=== PATIENT | female | born 2000 | race Caucasian/White ===

== ENCOUNTER 2022-08-17 21:06 | Emergency (ER) | payer OTHER ==
--- OUTSIDE RECORDS SUMMARY | 2022-08-17 21:09 | XMS REPORT | Continuity of Care Document ---
:2000 Author Organization [facility] t Address [address] [place] [address]. 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 [id number] 2021 NON-CONTRACT 00:00:00 [employer] [id number] 2019 00:00:00 Problems Condition Condition Condition Status Onset Resolution Last Treating Co mments Source Name Details Category Date Date Treatment Clinician Date Generalize Generalize Disease Active U nivers d anxiety d anxiety 3-17 ity of disorder disorder 00:00: [address] Allergies, Adverse Reactions, Alerts Allergy Allergy Status Severity Reaction(s) Onset Inactive Treating Comm ents Source Name Type Date Date Clinician NO KNOWN Drug Active Univers ALLERGIE Class ity of S [facility] Social History Social Habit Start Date Stop Date Quantity Comments Source History [facility] University o f Alcohol Frequency [facility] edical Branch History [facility] University o f Alcohol Std Drinks [facility] History [facility] University o f Alcohol Binge [facility] al Branch History of tobacco Cigarette Smoker University of use [facility] Exposure to Not sure University of SARS-CoV-2 (event) [facility] Alcohol intake 2021-01-24 2021-01-24 0 /d University of 00:00:00 00:00:00 [facility] Cigarettes smoked 2020-02-02 2020-02-02 Univers ity of current (pack per 00:00:00 00:00:00 [facility] ) - Reported Branch Cigarette 2020-02-02 2020-02-02 University of pack-years 00:00:00 00:00:00 [facility] Tobacco use and 2020-02-02 2020-02-02 Never used Universit y of exposure 00:00:00 00:00:00 [facility] Alcohol Comment 2020-02-02 2020-02-02 socially Universit y of 00:00:00 00:00:00 [facility] Sex Assigned At [birth year] Universit y of 00:00:00 00:00:00 [facility] Smoking Status Start Date Stop Date Source Current every day smoker 2020-02-02 00:00:00 Uni versity of [facility] Medications Ordered Filled Start Stop Current Ordering Indication Dosage Frequency Signature Comments Components Source Medication Medication Date Date Medication? Clinician (SIG) Name Name medroxyPROG 2020-06- No [id number] 150mg Univers ESTERone -12 11-12 ity of (DEPO-PROVE 17:15: 16:18 [facility]) syringe 00 :00 Medical 150 mg [place] medroxyPROG 2020-06- No [id number] 150mg 150 mg, Univers ESTERone -12 11-12 Intramuscu ity of (DEPO-PROVE 17:15: 16:18 lar, ONCE, [facility]) syringe 00 :00 1 dose, On Me dical 150 mg Fri [place] 04/26/21 at 1115, Routine ciprofloxac 2020-06 Yes [id number] 250mg Take 1 Univers in HCl 1-12 tablet by ity of (CIPRO) 250 00:00: mouth [place] mg tablet 00 every 12 Medica l (twelve) Branch hours. escitalopra Yes [id number] 15mg Take 1.5 Univers m oxalate 8-12 tablets by ity of 10 mg 00:00: mouth [place] tablet 00 daily. [facility] hydrOXYzine Yes [id number] 25mg Take 1 Univers 25 mg 8-12 tablet by ity of tablet 00:00: mouth [place] 00 every 6 Medical (six) Branch hours as needed for Anxiety. Vital Signs Vital Name Observation Time Observation Value Comments Source Systolic blood 2021-04-26 16:01:00 119 mm[Hg] Univer sity of pressure [facility] Diastolic blood 2021-04-26 16:01:00 86 mm[Hg] Unive rsity of pressure [facility] Heart rate 2021-04-26 16:01:00 82 /min [facility] Body temperature 2021-04-26 16:01:00 36.83 [facility] [facility] height 2021-04-26 16:01:00 175.3 cm [facility] Body weight 2021-04-26 16:01:00 103.874 kg [facility] BMI 2021-04-26 16:01:00 33.82 kg/m2 [facility] Body mass index 2021-04-26 16:01:00 96.63 % Unive rsity of (BMI) [Percentile] [facility] ica Per age and sex Branch Procedures This patient has no known procedures. Encounters Start End Encounter Admission Attending Care Care Encounter Source Date/Time Date/Time Type Type Clinicians Facility Department ID 2021-07-29 2021-07-29 Outpatient Josiah CARTER [facility] [id number] [facility] 15:00:00 15:00:00 FAITH [facility] 2021-04-26 2021-04-26 Outpatient Josiah CARTER [facility] [id number] [facility] 10:00:00 10:19:49 FAITH [facility] 2021-04-26 2021-04-26 Office [facility] [id number] [facility] 09:54:38 10:19:49 Visit [facility] [id number] it y of [place] YAÑEZ [id number] Zach as ALYSIA?BLEA [phone] [place] [address] MEDICAL OFFICE BUILDING 2021-04-26 2021-04-26 Outpatient Josiah CARTER [facility] [id number] Univers 10:00:00 10:00:00 FAITH [facility] 2021-01-24 2021-01-24 Outpatient R MILI [facility] [id number] Univers 09:00:00 09:19:16 FAITH [facility] 2021-01-24 2021-01-24 [facility] [id number] Univers 08:53:50 09:19:16 Visit [facility] [id number] it y of [place] [id number] Zach as Professio [phone] [address] One 2021-01-23 2021-01-23 [facility] [id number] Univers 08:00:00 08:00:00 FAITH [facility] 2020-12-24 2020-12-24 Orders Doctor SANDRITA [id number] Univers 00:00:00 00:00:00 Only Unassigned, MARGRET [id number] ity of [facility] [id number] Zach as [phone] [address] 2020-10-23 2020-10-23 [facility] [id number] Univers 16:01:53 16:32:01 Visit [facility] [id number] it y of [place] [id number] Zach as Professio [phone] [address] One 2020-10-23 2020-10-23 Outpatient Josiah CARTER [facility] [id number] Univers 16:00:00 16:00:00 FAITH mayberry [facility] 2020-10-09 2020-10-09 Outpatient R GABRIEL [facility] [id number] Univers 13:30:00 13:30:00 ENZO goodman [facility] 2020-10-08 2020-10-08 Outpatient R MILI [facility] [id number] Univers 16:00:00 16:00:00 FAITH giuseppe [facility] 2020-09-26 2020-09-26 Office [facility] [id number] Univers 13:48:16 14:03:16 Visit [facility] [id number] it y of [place] Yañ[place] [id number] Zach as Professio [phone] [facility] 044 [facility] One 2020-09-26 2020-09-26 Outpatient [facility] [id number] Univers 14:00:00 14:00:00 FAITH ity [facility] 2020-08-29 2020-08-29 Office [facility] [id number] Univers 16:09:56 16:24:56 Visit [facility] [id number] it y of [place] [id number] Zach as Professio [phone] [address] One 2020-08-29 2020-08-29 Outpatient R MILI [facility] [id number] Univers 16:15:00 16:15:00 FAITH ity [facility] 2020-02-03 2020-02-03 Telephone Magi Link [facility] [id number] Univers 00:00:00 00:00:00 Pari [id number] i ty [id number] Profess[place] [phone] [facility] 134 [facility] 2020-02-02 2020-02-02 Outpatient R MAGI LINK [facility] [id number] Univers 11:00:00 11:00:00 ity of [facility] 2020-02-02 2020-02-02 Orders Doctor SANDRITA [id number] Univers 00:00:00 00:00:00 Only Unassigned, MARGRET [id number] ity of [place] [facility] [id number] Zach as [phone] [address] 2019-08-23 2019-08-23 Office [facility] [id number] Univers 10:18:59 10:33:59 Visit [facility] [id number] it y of [place] [id number] Zach as Professio [phone] Sc dical nal 044 Branch Office Building One 2019-08-23 2019-08-23 Outpatient R MILI [facility] [id number] Univers 10:15:00 10:15:00 FAITH ity of [facility] 2019-08-23 2019-08-23 Orders Doctor SANDRITA [id number] Univers 00:00:00 00:00:00 Only Unassigned, MARGRET [id number] ity of [place] [facility] [id number] Zach as [phone] [address] 2019-08-23 2019-08-23 Letter Mili [facility] [id number] Univers 00:00:00 00:00:00 (Out) [facility] [id number] it y of [place] [id number] Zach as Professio [phone] Sc dical nal 044 Branch Office Building One Results This patient has no known results.
--- NOTE | 2022-08-17 22:05 | RAD REPORT ---
EXAM DESCRIPTION: RAD - Knee Left 3 View - 08/17/2022 9:47 pm CLINICAL HISTORY: Left knee pain status post injury FINDINGS: No fracture or dislocation is seen.
[2022-08-17] MEDS ORDERED: HYDROCODONE/APAP 10/325 TAB ONE (23:24)
[2022-08-17] MEDS ORDERED: CYCLOBENZAPRINE 10 MG TAB ONE (23:24)
[2022-08-17] MEDS ORDERED: IBUPROFEN 400 MG TAB ONE (23:27)
--- NOTE | 2022-08-17 23:47 | EDPHYS ---
Physician Documentation [facility] Name: Dottie Dye Age: 21 yrs Sex: Female : 2000 Arrival Date: 08/17/2022 Time: 21:10 Bed 13 Private MD: ED Physician Bartolo Gasca HPI: 08/17 22:48 This 21 yrs old Female presents to ER via Wheelchair with complaints of Knee sp4 Injury. 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 - Social history:: Smoking status: Reported history of juuling and/or vaping. Patient uses street drugs, marijuana. ROS: 23:49 Constitutional: Negative for fever, chills, and weight loss, Eyes: Negative for injury, sp4 pain, redness, and discharge, ENT: Negative for injury, pain, and discharge, Neck: Negative for injury, pain, and swelling, Cardiovascular: Negative for chest pain, palpitations, and edema, Respiratory: Negative for shortness of breath, cough, wheezing, and pleuritic chest pain, Abdomen/GI: Negative for abdominal pain, nausea, vomiting, diarrhea, and constipation, Back: Negative for injury and pain, MS/Extremity: Positive for left knee injury, sprain, pain on weightbearing, swelling Skin: Negative for injury, rash, and discoloration, Neuro: Negative for headache, weakness, numbness, tingling, and seizure, Psych: Negative for depression, anxiety, suicide ideation, homicidal ideation, and hallucinations, Allergy/Immunology: Negative for hives, rash, and allergies, Endocrine: Negative for neck swelling, polydipsia, polyuria, polyphagia, and marked weight changes, Hematologic/Lymphatic: Negative for swollen nodes, abnormal bleeding, and unusual bruising. Exam: 23:49 Constitutional: This is a well developed, well nourished patient who is awake, alert, sp4 and in no acute distress. Head/Face: Normocephalic, atraumatic. Eyes: Pupils equal round and reactive to light, extra-ocular motions intact. Lids and lashes normal. Conjunctiva and sclera are non-icteric and not injected. Cornea within normal limits. Periorbital areas with no swelling, redness, or edema. ENT: Nares patent. No nasal discharge, no septal abnormalities noted. Tympanic membranes are normal and external auditory canals are clear. Oropharynx with no redness, swelling, or masses, exudates, or evidence of obstruction, uvula midline. Mucous membranes moist. Neck: Trachea midline, no thyromegaly or masses palpated, and no cervical lymphadenopathy. Supple, full range of motion without nuchal rigidity, or vertebral point tenderness. No Meningismus. Cardiovascular: Regular rate and rhythm with a normal S1 and S2. No gallops, murmurs, or rubs. Normal PMI, no JVD. No pulse deficits. Respiratory: Lungs have equal breath sounds bilaterally, clear to auscultation and percussion. No rales, rhonchi or wheezes noted. No increased work of breathing, no retractions or nasal flaring. Abdomen/GI: Soft, non-tender, with normal bowel sounds. No distension or tympany. No guarding or rebound. No evidence of tenderness throughout. Back: No spinal tenderness. No costovertebral tenderness. Full range of motion. Skin: Warm, dry with normal turgor. Normal color with no rashes, no lesions, and no evidence of cellulitis. MS/ Extremity: Pulses equal, no cyanosis. Neurovascular intact. There is a left knee mild swelling and effusion, left knee pain, left knee -no instability to see, left knee is stable by exam, distal pulses are intact, there is pain on weightbearing Neuro: Awake and alert, GCS 15, oriented to person, place, time, and situation. Cranial nerves II-XII grossly intact. Motor strength 5/5 in all extremities. Sensory grossly intact. Cerebellar exam normal. Psych: Awake, alert, with orientation to person, place and time. Behavior, mood, and affect are within normal limits. Vital Signs: 21:12 BP 115 / 73; Pulse 87; Resp 18 S; Temp 97.8(O); Pulse Ox 100% on R/A; Weight 96.16 kg as6 (R); Height 5 ft. 10 in. (177.80 cm) (R); Pain 4/10; 23:00 BP 124 / 88; Pulse 68; Resp 18; Pulse Ox 98% on R/A; Pain 9/10; pf1 08/18 00:00 BP 115 / 79; Pulse 74; Resp 18; Temp 98; Pulse Ox 100% on R/A; Pain 6/10; pf1 08/17 21:12 Body Mass Index 30.42 (96.16 kg, 177.80 cm) as6 Procedures: 08/17 23:41 Splinting: Splint applied to left knee using knee immobilizer, applied by myself. sp4 Examined by me, post splint application: neurovascular intact, 2+ distal pulses palpable, brisk capillary refill noted, Patient tolerated well, Crutches provided for the patient. MDM: 21:41 Patient medically screened. sp4 23:41 Differential Diagnosis Left knee sprain, left knee dislocation, left knee partial sp4 dislocation the left patellar dislocation. Data reviewed: vital signs, lab test result(s), radiologic studies, plain films. ED course: Left knee immobilizer was applied, knee is stable by exam, advised 2 weeks of crutches, 2 weeks of knee immobilization with rigid immobilizer after that switch to hinged knee immobilizer May continue hinged knee immobilizer until he completely recovers, will advise follow-up with orthopedist in case there is worsening pain or knee instability. 08/17 21:16 Order name: XRAY Knee LEFT 3 view as6 08/17 21:23 Order name: Urine Test (obtain specimen); Complete Time: 23:21 sp4 08/17 22:05 Order name: RAD; Complete Time: 22:54 EDMS 08/17 23:21 Order name: Knee Immobilizer; Complete Time: 00:05 sp4 08/17 23:21 Order name: Crutches; Complete Time: 00:05 sp4 08/17 23:22 Order name: Urine --Ancillary (enter results) ds4 08/17 23:29 Order name: Urine --Ancillary; Complete Time: 23:32 EDMS Administered Medications: 23:20 Not Given (Duplicate Order): Naproxen 500 mg PO once sp4 23:24 Drug: Flexeril (cyclobenzaprine) 10 mg Route: PO; pf1 23:47 Follow up: Response: No adverse reaction; Marked relief of symptoms; Pain is decreased pf1 23:24 Drug: [place] (HYDROcodone-acetaminophen) 10 mg-325 mg 1 tabs Route: PO; pf1 23:47 Follow up: Response: No adverse reaction; Marked relief of symptoms; Pain is decreased; pf1 RASS: Alert and Calm (0) 23:24 Drug: Ibuprofen 800 mg Route: PO; pf1 23:47 Follow up: Response: No adverse reaction; Marked relief of symptoms; Pain is decreased pf1 Disposition Summary: 08/17/22 23:46 Discharge Ordered Location: Home sp4 Problem: new sp4 Symptoms: have improved sp4 Condition: Stable sp4 Diagnosis - Sprain of unspecified site of left knee sp4 - Left knee medial ligament sprain, left knee partial ligament tear, acute left knee sp4 sprain Followup: sp4 - With: Thony Antoine MD - When: 10 - 14 days - Reason: Re-evaluation by your physician Discharge Instructions: - Discharge Summary Sheet sp4 - Knee Sprain, Adult, [id number] sp4 Forms: - Work release form ds4 - Thank You Letter sp4 - Prescription Opioid Use sp4 Prescriptions: - Ibuprofen 800 mg Oral Tablet - take 1 tablet by ORAL route every 8 hours As needed take with food as needed sp4 for pain; 30 tablet; Refills: 0, Product Selection Permitted - Tramadol 50 mg Oral Tablet - take 1 tablet by ORAL route every 6 hours as needed; 30 tablet; Refills: 0, sp4 Product Selection Permitted - methocarbamol 750 mg Oral Tablet - take 2 tablets by ORAL route every 6 hours for 2 days PRN muscle soreness; 60 sp4 tablet; Refills: 0, Product Selection Permitted 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
--- NOTE | 2022-08-17 23:47 | ER ---
Nurse's Notes [facility] Name: Dottie Dye Age: 21 yrs Sex: Female : 2000 Arrival Date: 08/17/2022 Time: 21:10 Bed 13 Private MD: Diagnosis: Sprain of unspecified site of left knee;Left knee medial ligament sprain, left knee partial ligament tear, acute left knee sprain Presentation: 08/17 21:12 Chief complaint: Patient states: "I twisted my left knee". Coronavirus screen: At this as6 time, the client does not indicate any symptoms associated with coronavirus-19. Ebola Screen: No symptoms or risks identified at this time. Initial Sepsis Screen: Does the patient meet any 2 criteria? No. Patient's initial sepsis screen is negative. Does the patient have a suspected source of infection? No. Patient's initial sepsis screen is negative. Risk Assessment: Do you want to hurt yourself or someone else? Patient reports no desire to harm self or others. Onset of symptoms was August 17, 2022. 21:12 Method Of Arrival: Wheelchair as6 21:12 Acuity: DRAGAN 4 as6 Triage Assessment: 21:40 General: Appears in no apparent distress. Behavior is calm, cooperative. Pain: as6 Complains of pain in left leg. Musculoskeletal: Swelling present in left leg. 23:00 Injury Description: Bruise sustained to left knee. 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 - Social history:: Smoking status: Reported history of juuling and/or vaping. Patient uses street drugs, marijuana. Screenin/06 00:04 [facility] ED Fall Risk Assessment (Adult) History of falling in the last 3 months, pf1 including since admission Yes- single mechanical fall (1 pt) Confusion or Disorientation No (0 pts) Intoxicated or Sedated No (0 pts) Impaired Gait No (0 pts) Mobility Assist Device Used No (0 pt) Altered Elimination No (0 pt) Score/Fall Risk Level 0 - 2 = Low Risk Oriented to surroundings, Maintained a safe environment, Educated pt \\T\\ family on fall prevention, incl call for assistance when getting out of bed, Assessed \\T\\ reinforced patient's understanding of fall precautions, Provided non-skid footwear, Hourly rounding (assess needs \\T\\ fall precautionary measures) done, Used ambulatory aids as needed (educated on \\T\\ assisted with), Used gait belt as appropriate. Abuse screen: Denies threats or abuse. Nutritional screening: No deficits noted. Tuberculosis screening: No symptoms or risk factors identified. Assessment: 08/17 23:00 General: Appears uncomfortable, well groomed, well developed, Behavior is calm, pf1 cooperative, appropriate for age, quiet. 23:00 Pain: Complains of pain in left knee Pain currently is 9 out of 10 on a pain scale. pf1 Neuro: No deficits noted. Level of Consciousness is awake, alert, obeys commands, Oriented to person, place, time, situation. Cardiovascular: No deficits noted. Capillary refill < 3 seconds Patient's skin is warm and dry. Respiratory: No deficits noted. Airway is patent Trachea midline Respiratory effort is even, unlabored, Respiratory pattern is regular, symmetrical. GI: No deficits noted. No signs and/or symptoms were reported involving the gastrointestinal system. : No deficits noted. No signs and/or symptoms were reported regarding the genitourinary system. EENT: No deficits noted. No signs and/or symptoms were reported regarding the EENT system. Derm: No deficits noted. No signs and/or symptoms reported regarding the dermatologic system. Musculoskeletal: Circulation, motion, and sensation intact. Capillary refill < 3 seconds, Reports pain in left knee since 1940. Vital Signs: 21:12 BP 115 / 73; Pulse 87; Resp 18 S; Temp 97.8(O); Pulse Ox 100% on R/A; Weight 96.16 kg as6 (R); Height 5 ft. 10 in. (177.80 cm) (R); Pain 4/10; 23:00 BP 124 / 88; Pulse 68; Resp 18; Pulse Ox 98% on R/A; Pain 9/10; pf1 08/18 00:00 BP 115 / 79; Pulse 74; Resp 18; Temp 98; Pulse Ox 100% on R/A; Pain 6/10; pf1 08/17 21:12 Body Mass Index 30.42 (96.16 kg, 177.80 cm) as6 ED Course: 08/17 21:10 Patient arrived in ED. jj6 21:14 Triage completed. as6 21:15 Arm band placed on. as6 21:18 Bartolo Gasca MD is Attending Physician. sp4 23:00 Patient has correct armband on for positive identification. Placed in gown. Bed in low pf1 position. Call light in reach. 23:00 No provider procedures requiring assistance completed. pf1 23:00 Patient did not have IV access during this emergency room visit. pf1 23:04 Bethany silva, RN is Primary Nurse. pf1 23:24 Urine --Ancillary (enter results) Sent. pf1 23:45 Thony Antoine MD is Referral Physician. sp4 Administered Medications: 23:20 Not Given (Duplicate Order): Naproxen 500 mg PO once sp4 23:24 Drug: Flexeril (cyclobenzaprine) 10 mg Route: PO; pf1 23:47 Follow up: Response: No adverse reaction; Marked relief of symptoms; Pain is decreased pf1 23:24 Drug: [place] (HYDROcodone-acetaminophen) 10 mg-325 mg 1 tabs Route: PO; pf1 23:47 Follow up: Response: No adverse reaction; Marked relief of symptoms; Pain is decreased; pf1 RASS: Alert and Calm (0) 23:24 Drug: Ibuprofen 800 mg Route: PO; pf1 23:47 Follow up: Response: No adverse reaction; Marked relief of symptoms; Pain is decreased pf1 Medication: 23:00 VIS not applicable for this client. pf1 Outcome: 23:46 Discharge ordered by . sp4 08/18 00:08 Patient left the ED. pf1 00:08 Discharged to home via wheelchair, with friend. pf1 00:08 Condition: improved pf1 00:08 Discharge instructions given to patient, Instructed on discharge instructions, follow up and referral plans. Demonstrated understanding of instructions, follow-up care, medications, Prescriptions given X 3. Signatures: Cee Fagan 6 Darwin Shell RN RN as6 Bethany silva RN RN pf1 Bartolo Gasca MD MD sp4 Corrections: (The following items were deleted from the chart) 04:49 00:08 Discharge instructions given to patient, Instructed on discharge instructions, pf1 follow up and referral plans. Demonstrated understanding of instructions, follow-up care, medications, Prescriptions given X pf1
[2022-08-18 00:18] VITALS: BP 115/79; TEMP 98; O2SAT 100
== END 2022-08-18 00:08 | disposition home or self-care (01) ==
LOC: ER 21:06
DX: S83.412A Sprain of medial collateral ligament of left knee, initial encounter (principal)
CPT/HCPCS: 81025; 99283